=== PATIENT | male | born 1990 | race Caucasian/White ===

== ENCOUNTER 2021-05-27 12:45 | Emergency (ER) | payer MEDICAID ==
[~2021-05-27] VITALS: Ht 188 cm; Wt 68.2 kg
[2021-05-27] MEDS ORDERED: ONDANSETRON HCL 4 MG TABLET PO ONE (15:15)
[2021-05-27] MEDS ORDERED: SODIUM CHLORIDE 0.9% 1,000 ML IV ONE (15:15)
[2021-05-27 15:34] LABS: HEMATOCRIT 45.8 % (41-53); HEMOGLOBIN 15.5 g/dL (13.5-17.5); LYMPHOCYTES # (AUTO) 2.4 K/uL (1.0-4.8); LYMPHOCYTES % (AUTO) 22.3 % (22.0-44.0); MEAN CORPUSCULAR VOLUME 85 fL (80-100); MONOCYTES # (AUTO) 0.8 K/uL (0.1-1.0); MONOCYTES % (AUTO) 7.4 % (2.0-9.0); NEUTROPHILS # (AUTO) 7.3 K/uL (1.8-7.7); NEUTROPHILS % (AUTO) 67.3 % (40.0-70.0); PLATELET COUNT (AUTO) 364 K/uL (150-450); RED BLOOD CELL COUNT(AUTO) 5.36 MIL/uL (4.50-5.90); RED CELL DISTRIBUTION WIDTH 13.6 % (11.5-14.5)
[2021-05-27 15:46] LABS: ANION GAP 8 mmol/L (8-16); CALCIUM, TOTAL 8.5 mg/dL (8.8-10.5); CARBON DIOXIDE 29 mmol/L (22-29); CHLORIDE 102 mmol/L (98-107); CREATININE 0.69 mg/dL (0.60-1.30); GLOMERULAR FILTR. RATE CALC > 60 mL/min (>60); GLUCOSE,RANDOM 84 mg/dL (70-110); POTASSIUM 3.5 mmol/L (3.5-5.1); SODIUM SERUM 139 mmol/L (136-145); UREA NITROGEN, BLOOD 13 mg/dL (7-18)
[2021-05-27 15:54] LABS: ALANINE AMINOTRANSFERASE 19 U/L (12-78); ALBUMIN 3.4 g/dL (3.4-5.0); ALKALINE PHOSPHATASE 90 U/L (46-116); ASPARTATE AMINOTRANSFERASE 16 U/L (15-37); BILIRUBIN,TOTAL 0.4 mg/dL (0.1-1.0); LIPASE 195 U/L (73-393); TOTAL PROTEIN, SERUM 7.3 g/dL (6.4-8.2)
[2021-05-27] MEDS ORDERED: ONDA-104 PO (17:06)
[2021-05-27 17:31] VITALS: BP 106/71
== END 2021-05-27 18:55 | disposition home or self-care (01) ==
LOC: EMS 12:48
DX: R10.31 Right lower quadrant pain (principal); R19.7 Diarrhea, unspecified; R11.0 Nausea; F17.210 Nicotine dependence, cigarettes, uncomplicated; F13.90 Sedative, hypnotic, or anxiolytic use, unspecified, uncomplicated
CPT/HCPCS: 36415; 80053; 83690; 85025; 96360; 99283; Q0162; J7030

== ENCOUNTER 2021-05-27 19:10 | Emergency (ER) | payer MEDICAID ==
[~2021-05-27] VITALS: Ht 188 cm; Wt 68.2 kg
[~2021-05-27 19:10] MED LIST: ONDA-104 PO
[2021-05-27 23:54] LABS: COVID AG,FIA SOURCE NASAL SWAB
[2021-05-28 00:15] VITALS: BP 121/75
== END 2021-05-28 00:29 | disposition home or self-care (01) ==
LOC: EMS 19:10
DX: F28 Other psychotic disorder not due to a substance or known physiological condition (principal); F17.210 Nicotine dependence, cigarettes, uncomplicated; F19.90 Other psychoactive substance use, unspecified, uncomplicated; Z20.822 Contact with and (suspected) exposure to COVID-19
CPT/HCPCS: 99284; Z7502